=== PATIENT | female | born 1975 | race Caucasian/White ===

== ENCOUNTER 2017-01-24 12:04 | Emergency (ER) | payer OTHER ==
[~2017-01-24] VITALS: Ht 167.6 cm; Wt 68.0 kg
[~2017-01-24 12:04] MED LIST: AMOXICILLIN500 MG PO; ANAPROX DS550 MG PO; BACTRIM DS 8001 TA1 PO; FIORICET 325 MG1 TAB PO; HYDROCO/APAP TAB 5-3; HYDROCODONE BIT1 T11 PO; IBU800 MG PO; IBUPROFEN 30 M800 MG PO; LEVAQUIN250 MG PO; MACROBID100 M1 PO; MEDROL DOSEPAK4 MG PO; NKHM; PEN-VEE K500 MG PO; PENICILLIN VK500 MG PO; TRAMADOL HCL50 MG PO; ULTRAM50 MG PO; VICODIN 5/500 505 MG PO; VICODIN ES 7501 TAB PO; [UNRECOGNIZED DRUG - SUPPLY]
[2017-01-24] MEDS ORDERED: PEPTO BISM525 MG/12 PO (12:12)
[2017-01-24] MEDS ORDERED: IMODIUM A-D2 M2 PO (12:12)
[2017-01-24 12:50] LABS: HEMATOCRIT 39.2 % (37.0-47.0); HEMOGLOBIN 13.4 g/dl (12.0-16.0); MEAN CELL VOLUME 91.6 fl (81.0-99.0); MEAN CORPUSCULAR HGB 31.3 pg (27.0-31.0); MEAN CORPUSCULAR HGB CONC 34.2 g/dl (33.0-37.0); PLATELET COUNT AUTOMATED 354 10*3/uL (130-400); RED BLOOD COUNT 4.28 10*6/uL (4.10-5.10); WHITE BLOOD COUNT 11.5 10*3/uL (4.8-10.8)
[2017-01-24 13:10] LABS: ALBUMIN 4.1 gm/dl (3.1-4.5); ALKALINE PHOSPHATASE 84 U/L (45-117); BASOPHIL # 0.1 10*3/uL (0-0.1); BASOPHILS 1 % (0-1); BILIRUBIN, TOTAL 0.6 mg/dl (0.2-1.0); BUN 9 mg/dl (7-24); CARBON DIOXIDE 27 mmol/L (21-32); CHLORIDE 104 mmol/L (98-107); EOSINOPHIL # 2.4 10*3/uL (0-0.4); EOSINOPHILS 21 % (1-4); EST GLOM FILT AFRICAN AMERICAN > 60 ml/min; GLUCOSE 90 mg/dL (65-99); LYMPHOCYTE # 2.8 10*3/uL (1.3-4.4); MAGNESIUM 2.3 mg/dL (1.5-2.1); MONOCYTE # 0.3 10*3/uL (0.1-1.0); NEUTROPHIL # 5.9 10*3/uL (2.3-7.9); NEUTROPHILS 51 % (47-73); POTASSIUM 3.4 mmol/L (3.5-5.1); SGOT/AST 12 IU/L (3-35); SGPT/ALT 21 U/L (12-78); SODIUM 140 mmol/L (136-145); TOTAL CELLS COUNTED 100 #CELLS; TOTAL PROTEIN 7.4 gm/dL (6.4-8.2)
[2017-01-24 13:11] LABS: PLATELET SUFFICIENCY NORMAL (NORMAL)
[2017-01-24 13:12] LABS: C-REACTIVE PROTEIN < 0.29 MG/DL (0-0.3)
[2017-01-24] MEDS ORDERED: ZOFRAN ODT4 MG SL (13:56)
[2017-01-24] MEDS ORDERED: PROTONIX40 MG PO (13:56)
== END 2017-01-24 14:31 | disposition home or self-care (01) ==
LOC: ED 12:04
PROVIDERS: Emergency Medicine
DX: K29.00 Acute gastritis without bleeding (principal); F17.200 Nicotine dependence, unspecified, uncomplicated

== ENCOUNTER → 2017-03-02 | Outpatient (CLI) | payer OTHER ==
[~2017-03-02] MED LIST changes: +IMODIUM A-D2 M2 PO; +PEPTO BISM525 MG/12 PO; +PROTONIX40 MG PO; +ZOFRAN ODT4 MG SL
== END | disposition home or self-care (01) ==
LOC: US 09:30
DX: R10.11 Right upper quadrant pain (principal)

== ENCOUNTER → 2017-03-14 | Outpatient (CLI) | payer OTHER | END | disposition home or self-care (01) | LOC: US 15:00 | DX: E04.2 Nontoxic multinodular goiter (principal) ==

== ENCOUNTER → 2017-05-03 | Outpatient (CLI) | payer OTHER ==
[2017-05-03 15:36] LABS: FREE T4 0.96 ng/dl (0.76-1.46)
[2017-05-03 15:41] LABS: THYROID STIM HORMONE (HS) 1.98 uIU/ml (0.358-4.75)
[2017-05-04 06:10] LABS: FREE T3 010389 3.2 pg/mL (2.0-4.4)
== END | disposition home or self-care (01) ==
LOC: LAB 14:40
PROVIDERS: Family Medicine
DX: E04.1 Nontoxic single thyroid nodule (principal); R53.83 Other fatigue; Z80.8 Family history of malignant neoplasm of other organs or systems

== ENCOUNTER → 2018-10-11 | Outpatient (CLI) | payer OTHER ==
[2018-10-11 13:51] LABS: FREE T4 0.9 ng/dl (0.76-1.46)
[2018-10-11 13:56] LABS: THYROID STIM HORMONE (HS) 12.5 uIU/ml (0.358-4.75)
== END | disposition home or self-care (01) ==
LOC: LAB 12:51
PROVIDERS: Family Medicine
DX: E03.9 Hypothyroidism, unspecified (principal)

== ENCOUNTER → 2018-11-26 | Day surgery (SDC) | payer OTHER ==
[2018-11-26] VITALS (8 sets, daily range): BP systolic 131–156; BP diastolic 84–98
[~2018-11-26] VITALS: Ht 167.6 cm; Wt 72.6 kg
[~2018-11-26] MED LIST changes: +LEVOTHYROXINE125 MCG PO; +NORCO 5-325 TA1 EACH PO
--- NOTE | ~2018-11-26 | PROC NOTE ---
[place], [place] PROCEDURE NOTE NAME: MARGIE BONILLA [facility] #: [id number] UNIT #: [id number] ROOM: DOCTOR: YG XIE MD BIRTHDATE: [birth year] DOS: 11/26/2018 PREOPERATIVE DIAGNOSIS: Anterior abdominal wall epidermal inclusion cyst. POSTOPERATIVE DIAGNOSIS: Anterior abdominal wall epidermal inclusion cyst. PROCEDURE: Excision of anterior abdominal wall epidermal inclusion cyst. SURGEON: Yg Xie MD [employer] W[employer]ER: None. ANESTHESIA: Local (10 mL of 1% plain lidocaine). INDICATIONS: This is a 42-year-old lady with a history of an anterior abdominal wall cyst who is here for the above-mentioned procedure. The procedure and its complications were explained to the patient in detail. Complications that were discussed included but were not limited to bleeding, infection, hematoma/seroma/abscess formation, prolonged pain, and damage to underlying vital structures. She agreed to proceed. DESCRIPTION OF PROCEDURE: After identifying the patient, the patient was brought to the operating suite and laid in a supine position. After time-out procedure was called, an incision was marked and local anesthesia was injected in the line of incision. The skin incision was made and deepened in layers. The cyst was excised in its entirety and sent for histopathological diagnosis. Thereafter, hemostasis was achieved, the subcutaneous tissue was then approximated with the help of 3-0 Vicryl in an interrupted fashion. The skin edges approximated with the help of 4-0 Vicryl in a subcuticular running fashion. Dressings were placed. The patient tolerated the procedure well and there were no complications. Dr. Yg Xie, the attending surgeon, was present throughout the operating case. Yg Xie MD CM:PROCNOTE:PROCEDURE NOTE [id number] YG XIE MD
== END | disposition home or self-care (01) ==
LOC: SDC 11-23 08:00
DX: L72.0 Epidermal cyst (principal); F17.210 Nicotine dependence, cigarettes, uncomplicated; Z88.8 Allergy status to other drugs, medicaments and biological substances; Z79.899 Other long term (current) drug therapy; Z98.890 Other specified postprocedural states; Z88.1 Allergy status to other antibiotic agents

== ENCOUNTER → 2020-07-01 | Outpatient (CLI) | payer OTHER ==
[2020-07-01 12:34] LABS: HEMATOCRIT 39.8 % (37.0-47.0); MEAN CELL VOLUME 92.8 fl (81.0-99.0); MEAN CORPUSCULAR HGB 30.5 pg (27.0-31.0); MEAN CORPUSCULAR HGB CONC 32.9 g/dl (33.0-37.0); RED BLOOD COUNT 4.29 10*6/uL (4.10-5.10); RED CELL DISTRI WIDTH 13.4 % (0-14.5); WHITE BLOOD COUNT 9.7 10*3/uL (4.8-10.8)
[2020-07-01 13:05] LABS: ALBUMIN 3.8 gm/dl (3.1-4.5); BUN 11 mg/dl (7-24); CHLORIDE 105 mmol/L (98-107); CHOLESTEROL 221 mg/dL (<200); CREATININE 0.65 mg/dL (0.55-1.02); POTASSIUM 4.1 mmol/L (3.5-5.1); SGOT/AST 14 IU/L (3-35); SGPT/ALT 25 U/L (12-78); SODIUM 138 mmol/L (136-145); TOTAL PROTEIN 7.5 gm/dL (6.4-8.2); TRIGLYCERIDES 94 mg/dl (<150); VLDL CHOLESTEROL 19 mg/dL (6-40)
[2020-07-01 13:11] LABS: ALKALINE PHOSPHATASE 82 U/L (45-117); FREE T4 1.04 ng/dl (0.76-1.46); HDL CHOLESTEROL 61 mg/dl (40-60); LDL CHOLESTEROL 141 mg/dL (9-159)
== END | disposition home or self-care (01) ==
LOC: LAB 11:57
PROVIDERS: ATTEND Family Medicine
DX: Z13.220 Encounter for screening for lipoid disorders (principal); R53.83 Other fatigue; E03.9 Hypothyroidism, unspecified; F90.9 Attention-deficit hyperactivity disorder, unspecified type

== ENCOUNTER → 2020-08-04 | Outpatient (CLI) | payer OTHER | END | disposition home or self-care (01) | LOC: COVID19 09:15 | PROVIDERS: ATTEND Family Medicine | DX: Z20.828 Contact with and (suspected) exposure to other viral communicable diseases (principal) ==

== ENCOUNTER → 2024-06-05 | Outpatient (CLI) | payer OTHER ==
[2024-06-05 10:38] LABS: HEMATOCRIT 40.7 % (37.0-47.0); MEAN CELL VOLUME 92.5 fl (81.0-99.0); MEAN CORPUSCULAR HGB 31.4 pg (27.0-31.0); MEAN CORPUSCULAR HGB CONC 33.9 g/dl (33.0-37.0); MEAN PLATELET VOLUME 9.9 fl (9.6-12.3); RED BLOOD COUNT 4.4 10*6/uL (4.10-5.10); RED CELL DISTRI WIDTH 13.8 % (0-14.5); WHITE BLOOD COUNT 8.6 10*3/uL (4.8-10.8)
[2024-06-05 11:37] LABS: ALKALINE PHOSPHATASE 97 U/L (46-116); BUN 10 mg/dl (9-23); CHLORIDE 107 mmol/L (98-107); FREE T4 1.27 ng/dl (0.89-1.76); POTASSIUM 4.3 mmol/L (3.4-5.1); SGPT/ALT 15 U/L (5-49); TOTAL PROTEIN 7.3 gm/dL (6.0-8.0)
== END | disposition home or self-care (01) ==
LOC: LAB 10:10
PROVIDERS: ATTEND Family Medicine
DX: Z00.00 Encounter for general adult medical examination without abnormal findings (principal); E03.9 Hypothyroidism, unspecified; F90.9 Attention-deficit hyperactivity disorder, unspecified type